=== PATIENT | male | born 1955 | race American Indian/Alaskan Native ===

== ENCOUNTER → 2017-02-06 | Outpatient (CLI) | payer OTHER ==
[~2017-02-06] MED LIST: Iopamidol 755 MG/ML 500 ML Multipack Bottle IVPUSH STA
--- NOTE | 2017-02-06 12:20 | CT ---
EXAMINATION: CTA chest HISTORY: Shortness of breath COMPARISON: None TECHNIQUE: Axial CT images obtained through the chest following the administration of 50 mL of Isovu e-[id number]. Coronal and sagittal reconstructions obtained. The bolus timing was slightly premature. FINDINGS: The lungs are clear without focal consolidation. No pleural effusion or pneumothorax. Mild dependent atelectasis. Small calcified granulomas noted in the right upper lobe. The heart is borde rline in size without a pericardial effusion. Moderate coronary artery calcifications are noted. The re is likely a tiny hiatal hernia. The main and central pulmonary arteries are patent. The distal pu lmonary arteries are not yet opacified due to timing. The central airways are clear. The thoracic ao rta is normal in caliber. The visualized images of the upper abdomen appear normal. No mediastinal, axillary, or hilar lymphadenopathy. The visualized osseous structures appear normal. IMPRESSION: 1. No main or central pulmonary embolism identified. 2. Mild cardiomegaly with moderate coronary artery calcifications. 3. Otherwise no acute cardiopulmonary finding noted.
== END ==
LOC: MW.DI 11:10
PROVIDERS: ATTEND Family Medicine
DX: R06.02 Shortness of breath (principal); R04.2 Hemoptysis; R53.83 Other fatigue; I10 Essential (primary) hypertension; R51 Headache; I51.7 Cardiomegaly
CPT/HCPCS: 71275; 71275-26

== ENCOUNTER 2022-08-06 13:02 | Emergency (ER) | payer MEDICARE, BC, OTHER ==
[2022-08-06] MEDS ORDERED: fentaNYL 50 MCG/ML SDV IVPUSH ONE ×2 (14:21→15:10)
[2022-08-06] MEDS ORDERED: HYDROmorphone 1 MG/ML Syringe IVPUSH ONE (15:42)
[2022-08-06 16:27] VITALS: BP 169/102; PULSE 106
== END 2022-08-06 16:27 | disposition home or self-care (01) ==
LOC: MW.ED 13:02
DX: S42.201A Unspecified fracture of upper end of right humerus, initial encounter for closed fracture (principal); Z79.899 Other long term (current) drug therapy; W01.0XXA Fall on same level from slipping, tripping and stumbling without subsequent striking against object, initial encounter
CPT/HCPCS: 71045; 73030; 73060; 96374; 96375; 96376; 99283; J1170; J3010